=== PATIENT | male | born 1945 | race Caucasian/White ===

== ENCOUNTER 2022-01-03 09:29 | Emergency (ER) | payer MEDICARE, OTHER, SELFPAY ==
[2022-01-03 09:48] VITALS: BP 159/81; PULSE 50; RESP 16; TEMP 36.5; O2SAT 98
--- NOTE | 2022-01-03 10:22 | ED.GENADUL_ITS ---
Discharge Plan Disposition Patient Disposition: HOME Condition: Improving Discharge Details Clinical Impression: Acute foreign body of left ear canal Primary Care Provider: Unknown,Unknown ED Provider: Matt Kelly Home Meds and New Rx's Prescriptions: Continued metoprolol succinate 25 mg tablet extended release 24 hr 25 mg PO DAILY 0RF Label Comments: Take 1 tablet by mouth once a day Discharge Instructions Additional Instructions: Feel free to return to the emergency department for any new or worsening symptoms such as drainage from the ear, pain, or any symptoms you are concerned about. Discharge Data Discharge Date/Time-TO BE ENTERED AT DEPARTURE: 01/03/22 10:29 Medical Decision Making Pt to ED for Foreign body in left ear. Pt denies all other s/s. Object removed without complication. Return and follow up discussed. HPI General Mode of arrival: ambulatory . Date/Time Provider Initiated Documentation: 01/03/22 09:30 . Limitations to Documentation: no limitations . Information obtained by: patient . History of Present Illness 76 year old M presents to the emergency department with the chief complaint of foreign object Left ear, Quality is described as other (denies pain), and is localized to the left (ear canal ). Patient reports no radiation. Patient started experiencing this unknown No exacerbating factors reported . Patient notes no other symptoms.. Patient did receive the following treatments prior to arrival, none Related Data Home Medications Medication Instructions Recorded Confirmed metoprolol succinate 25 mg 25 mg PO DAILY 01/03/22 01/03/22 tablet,extended release 24 hr Allergies Allergy/AdvReac Type Severity Reaction Status Date / Time ciprofloxacin [From Cipro] Allergy Unverified 01/03/22 09:56 ivp dye Allergy Uncoded 01/03/22 09:57 statins Allergy Uncoded 01/03/22 09:56 General Stated Complaint: EarProblem OSIRIS: 4 Review of Systems All systems reviewed & are unremarkable except as noted in HPI and below Constitutional Constitutional: Denies chills, Denies fever(s) and Denies headache(s) ENT Ears, Nose, Mouth, and Throat: Reports abnormal hearing (decreased on left), Denies vertigo, Denies dizziness, Denies ear discharge, Denies otalgia, Denies headache(s) and Denies hearing loss Neurologic Neurologic: Reports abnormal hearing (decreased on left), Denies vertigo, Denies dizziness and Denies headache(s) PFS All Active Problems (Updated 01/03/22 @ 10:22 by Matt Kelly NP) Acute foreign body of left ear canal (Acute) Social History Smoking/Tobacco Use Status: Former Tobacco Use Smoking risk assessment performed?: Yes Substance use type: does not use Exam Const General: cooperative, no acute distress and not ill appearing Orientation: alert, awake and oriented x3 HENMT Head: normal to inspection and atraumatic Ears: external ears normal, TM normal on the right and EAC abnormal foreign body on the left Face and sinus: normal facial exam Resp Effort & Inspection: normal respiratory effort, able to speak in complete sentences and no respiratory distress Skin General skin exam: no rashes or lesions noted Neuro General: patient alert, patient awake, patient oriented x3 and moves all extremities Course Vital Signs Vital signs: Vital Signs Temperature 36.5 C 01/03/22 09:48 Pulse 50 L 01/03/22 09:48 Respiratory Rate 16 01/03/22 09:48 Blood Pressure 159/81 H 01/03/22 09:48 Pulse Oximetry 98 01/03/22 09:48 Temperature 36.5 C 01/03/22 09:48 Temperature Source Skin 01/03/22 09:48 Pulse 50 L 01/03/22 09:48 Respiratory Rate 16 01/03/22 09:48 Respiratory Effort 01/03/22 09:48 Blood Pressure 159/81 H 01/03/22 09:48 Blood Pressure Position Sitting 01/03/22 09:48 Pulse Oximetry 98 01/03/22 09:48 Oxygen Delivery Method Room Air 01/03/22 09:48 Oxygen Flow Rate 0 01/03/22 09:48 Pain Level 0 01/03/22 09:48 Procedures FB Removal Ear Location: ear canal (L) Foreign Body Suspected: plastic bead/other plastic TM intact pre-procedure: unable to visualize Foreign Body Removed: yes Foreign Body Removal Technique: instrumentation Tympanic Membrane Intact: Yes Patient Tolerated Procedure: well Complications: none
== END 2022-01-03 10:29 | disposition home or self-care (01) ==
PROVIDERS: Emergency Provider Nurse Practitioner Family
DX: T16.2XXA Foreign body in left ear, initial encounter (principal); X58.XXXA Exposure to other specified factors, initial encounter
CPT/HCPCS: 69200